=== PATIENT | female | born 1955 | race Caucasian/White ===

== ENCOUNTER → 2017-11-18 11:26 | Outpatient (CLI) | payer OTHER, SELFPAY ==
[2017-11-18 14:27] LABS: Alanine Aminotransferase 18 U/L (12-78); Albumin Level 3.7 gm/dL (3.4-5.0); Albumin/Globulin Ratio 1.3 (1.1-1.8); Alkaline Phosphatase 58 U/L (46-116); Anion Gap 11.8 mEq/L (5-15); Aspartate Amino Transferase 10 U/L (15-37); Bilirubin,Total 0.2 mg/dL (0.2-1.0); Blood Urea Nitrogen 3 mg/dL (7-18); Calcium 8.4 mg/dL (8.5-10.1); Carbon Dioxide 28 mmol/L (21.0-32.0); Chloride 103 mmol/L (98-107); Creatinine,Serum 0.79 mg/dL (0.55-1.02); Estimated Glomerular Filt Rate 74 ml/min (>60); GFR (African American) 90 ML/MIN (>60); Globulin 2.8 gm/dl (1.3-3.2); Glucose 106 mg/dL (74-106); Potassium 3.8 mmoL/L (3.5-5.1); Sodium 139 mmol/L (136-145); Thyroid Stimulating Hormone 1.03 uIU/ml (0.358-3.740); Total Protein,Serum 6.5 gm/dL (6.4-8.2)
[2017-11-21 05:25] LABS: Vitamin B12 >2000 pg/mL (232-1245)
== END ==
PROVIDERS: PCP Family Medicine; Visit Provider Family Medicine
DX: D12.6 Benign neoplasm of colon, unspecified (principal); F41.8 Other specified anxiety disorders
CPT/HCPCS: 36415; 80053; 82607; 84443

== ENCOUNTER → 2018-01-06 14:47 | Outpatient (CLI) | payer OTHER, SELFPAY ==
--- NOTE | 2018-01-06 14:54 | MM_ITS ---
MM Dig mamm BI DX w/CAD COMPARISON: Digital mammograms with CAD 07/25/2014 INDICATION: There is no personal or family history of breast cancer. There is been previous biopsy right breast for benign disease. There is apparent new palpable lesion left breast. TECHNIQUE: Standard MLO and CC views were obtained along with spot compression MLO and CC views and magnification views upper outer quadrant left breast FINDINGS: Prominent somewhat heterogenic fibroglandular densities are seen in the central portions of both breast. A marker was placed on the skin upper outer quadrant left breast at the site of the palpable lump. There is asymmetrical increased density at this site and spot magnification exaggerated cc view shows what appears be a a spherical somewhat homogeneous appearing mass. Ultrasound performed the same date showed a hypoechoic mass corresponding in size and location to this density with internal debris. In view of the size of the lesion and the fact that it was not present on the previous mammogram cyst aspiration for cytology should be considered. There are few scattered benign-appearing calcination right breast and there is minimal arterial calcification left breast. There are multiple scattered microcalcifications upper outer quadrant left breast as well which appear to be typical of sclerosing adenosis. IMPRESSION: Moderately dense parenchymal pattern with asymmetric density left breast with ultrasound correlation and recommend follow-up cyst aspiration for both symptomatic relief and cytology BI-RADS Category: 4 Suspicious Abnormality-Biopsy Considered RECOMMENDED FOLLOW-UP: IMM - IMMEDIATE FOLLOW-UP RECOMMENDED (A letter has been sent to the patient regarding results of the study.)
--- NOTE | 2018-01-06 16:10 | US_ITS ---
US breast LT complete COMPARISON: None HISTORY: New palpable lump left breast with asymmetric density on mammogram performed same date TECHNIQUE: Targeted ultrasound left breast FINDINGS: There is an oval hypoechoic cystic-appearing lesion at the 1:00 position mid breast measuring 2.6 x 2.1 x 1.4 cm. There is moderate internal debris noted. The borders are fairly well demarcated and smooth. In addition there is a tiny hypoechoic lesion at the 9:00 position near the nipple to small to definitely characterize but probably a microcyst measuring point to 5.3 cm. IMPRESSION: Dominant hypoechoic cystic lesion 1:00 position mid breast corresponding in size and location to the asymmetric density on the mammogram same date in view of the patient's age and size of the lesion recommend follow-up cyst aspiration for cytology
== END ==
PROVIDERS: PCP Family Medicine; Visit Provider Family Medicine
DX: N63.0 Unspecified lump in unspecified breast (principal)
CPT/HCPCS: 76641; 77066

== ENCOUNTER → 2018-01-31 09:01 | Outpatient (CLI) | payer OTHER, SELFPAY ==
--- NOTE | 2018-01-31 09:03 | US_ITS ---
US breast cyst asp, MM Dig mamm DX unilat LT CAD, US breast LT complete HISTORY: ITS.REASON: cyst of lt breast ORDERING PHYSICIAN: Markell Stallworth MD PATIENT AGE: 62 years COMPARISON: 01/06/2018 Prebiopsy ultrasound: Prebiopsy examination once again demonstrates a 2 cm cyst in the 1:00 region left breast with some low-level internal echoes. Biopsy planning performed and appropriate skin site marked. TECHNIQUE: Following obtaining informed consent, using aseptic technique and local anesthesia with buffered lidocaine, fine-needle aspiration was performed of the nodule of interest using sonographic guidance. 4 mL's of slightly greenish turbid fluid was aspirated from the cyst with a 25-gauge needle. The cyst completely disappeared on ultrasound. Specimen was given to cytology. The patient tolerated the procedure well without evidence of immediate complications and left the ultrasound suite in stable condition. CYTOLOGY:Negative for malignancy. Findings most consistent with cyst Postbiopsy mammogram: Dense fibroglandular tissue. Previously noted asymmetric density in the upper outer aspect of the left breast no longer apparent. IMPRESSION: Successful sonographic guided cyst aspiration of the left breast. Benign cytology. Recommend follow-up left breast ultrasound in 6 months per routine protocol
== END ==
PROVIDERS: PCP Family Medicine; Visit Provider Surgery
DX: N60.02 Solitary cyst of left breast (principal)
CPT/HCPCS: 10022; 76641; 76942; 77065

== ENCOUNTER → 2021-11-19 10:30 | Outpatient (CLI) | payer SELFPAY ==
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
== END ==
PROVIDERS: PCP Family Medicine; Visit Provider Nurse Practitioner Family
DX: R42 Dizziness and giddiness (principal); G51.0 Bell's palsy; H49.20 Sixth [abducent] nerve palsy, unspecified eye; H57.04 Mydriasis; H91.90 Unspecified hearing loss, unspecified ear; H93.19 Tinnitus, unspecified ear; S05.91XA Unspecified injury of right eye and orbit, initial encounter; S13.110A Subluxation of C0/C1 cervical vertebrae, initial encounter; Z86.79 Personal history of other diseases of the circulatory system; Z87.828 Personal history of other (healed) physical injury and trauma
CPT/HCPCS: 70551

== ENCOUNTER → 2023-02-16 08:20 | Outpatient (CLI) | payer MEDICARE, SELFPAY ==
--- NOTE | 2023-02-16 08:28 | MM_ITS ---
PROCEDURE INFORMATION: Exam: MG Bilateral Screening 3D Mammography Exam date and time: 02/16/2023 8:22 AM Age: 67 years old Clinical indication: Screening examination TECHNIQUE: Imaging protocol: Bilateral Screening tomosynthesis and 2D mammography including computer-aided detection (CAD) when performed. COMPARISON: 1. MG DXLT MM Dig mamm DX unilat LT CAD 01/31/2018 11:27 AM 2. MG DXBI MM Dig mamm BI DX w/CAD 01/06/2018 3:22 PM FINDINGS: MAMMOGRAPHY: Breast composition: The breasts are extremely dense, which lowers the sensitivity of mammography. Mass: None. Architectural distortion: None. Calcifications: No suspicious calcifications. Asymmetric density: None. Skin thickening: None. Axillary adenopathy: None. IMPRESSION: No mammographic evidence of malignancy. Annual screening is recommended unless otherwise clinically indicated. ASSESSMENT: BI-RADS Category 1: Negative
== END ==
PROVIDERS: PCP Family Medicine; Visit Provider Family Medicine
DX: Z12.31 Encounter for screening mammogram for malignant neoplasm of breast (principal)
CPT/HCPCS: 77063; 77067

== ENCOUNTER → 2023-03-04 09:19 | Outpatient (CLI) | payer MEDICARE, SELFPAY ==
--- NOTE | 2023-03-04 09:25 | XR_ITS ---
FINAL REPORT CLINICAL HISTORY: Osteoporosis screening COMPARISON: None FINDINGS: Using L1-4, the bone mineral density of the spine is 0.830 g/cm2, corresponding to T-score of -2.0, consistent with osteopenia. Using the left hip, the bone mineral density of the femoral neck is 0.596 g/cm2, corresponding to a T-score of -2.8, consistent with osteoporosis. Using the right hip, the bone mineral density of the femoral neck is 0.593 g/cm2, corresponding to a T-score of -2.9, consistent with osteoporosis. FRAX not reported because some T-score at or below -2.5. NOTE: T-score: Standard deviation compared with peak bone mass of young adult mean. *Following the recommendations of the International Society of Bone densitometry, classification of hip BMD is based on the lower of two T-scores; total hip or femoral neck. IMPRESSION: Diminished bone mineral density consistent with osteoporosis. Reviewed, Interpreted and Dictated by Dante Morrison MD Transcribed by Kimberley Cornejo Authenticated and [facility]
== END ==
LOC: RAD 09:19
PROVIDERS: PCP Family Medicine; Visit Provider Family Medicine
DX: M85.89 Other specified disorders of bone density and structure, multiple sites (principal); Z13.820 Encounter for screening for osteoporosis
CPT/HCPCS: 77080

== ENCOUNTER 2024-01-23 17:13 | Outpatient (CLI) | payer MEDICARE, SELFPAY ==
--- NOTE | 2024-01-23 17:34 | XR_ITS ---
PROCEDURE INFORMATION: Exam: XR Right Wrist Exam date and time: 01/23/2024 5:25 PM Age: 68 years old Clinical indication: Pain; Wrist; Right; Additional info: Injury TECHNIQUE: Imaging protocol: Radiologic exam of the right wrist. Views: 3 or more views. COMPARISON: No relevant prior studies available. FINDINGS: Bones/joints: Acute impacted fracture through the epiphyseal area of the distal radius. There is approximately 15 degrees of dorsal inclination. Minimal comminution. The degree of impaction measures approximately 4 mm. Acute fracture through the ulnar styloid tip. There is approximately 2 mm of fracture distraction. Soft tissues: Associated soft tissue swelling is identified. IMPRESSION: 1. Acute impacted fracture through the epiphyseal area of the distal radius. There is approximately 15 degrees of dorsal inclination. Minimal comminution. The degree of impaction measures approximately 4 mm. 2. Acute fracture through the ulnar styloid tip. There is approximately 2 mm of fracture distraction.
== END 2024-01-23 23:59 | disposition home or self-care (01) ==
LOC: RAD 17:17
PROVIDERS: PCP Family Medicine; Visit Provider Family Medicine
DX: M25.531 Pain in right wrist (principal); S69.91XA Unspecified injury of right wrist, hand and finger(s), initial encounter
CPT/HCPCS: 73110

== ENCOUNTER 2024-10-02 08:24 | Outpatient (CLI) | payer MEDICARE, SELFPAY ==
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
--- OUTSIDE RECORDS SUMMARY | 2024-09-10 09:45 | XMS_ITS ---
Author Organization [facility] Address [address] [place] [id number] Care Team Providers Care Data Entry Email Processor Name Role Phone Ale Sheridan Primary Care Provider [phone] Apurva Real Unavailable [phone] Allergies Allergen (clinical drug ingredient) Drug/Non Drug Allergy documented on EMR Reaction Allergy Type Onset Date Status hydrochlorothiazide hydroCHLOROthiazide Unknown Drug Aller gy Active REASON FOR VISIT hearing aid Medications Medication SIG (Take, Route, Frequency, Duration) Notes Start Date End Date Status Temazepam 30 MG 1 capsule at bedtime as needed Orally at bed time; Duration: 30 days 08/24/2024 Active LORazepam 0.5 MG 1 tab(s) Orally twic e a day as needed 08/24/2024 Active FeroSul 325 (65 Fe) MG 1 tab(s) orally T wo times a day; Duration: 90 days Active Meclizine HCl 25 MG 1 tablet as needed O rally At Bed Time 07/11/2023 Not-Taking Risedronate Sodium 35 MG 1 tablet at least 30 minutes before the first food or drink, other than water, of the day Orally once weekly Active Estrace 0.1 MG/GM 1 g intravaginally 3 times a week 04/19/2017 Active Potassium Chloride ER 10 MEQ 1 tablet with food Orally Twice a day; Duration: 90 days Active Vitamin B-12 1000 MCG TAKE 1 TABLET BY M OUTH DAILY; Duration: 90 Active Pantoprazole Sodium 40 MG 1 tab(s) orally once a day; Duration: 90 days Active Vital Signs Weight 106.8 lbs 09/10/2024 Blood pressure systolic 122 mm Hg 09/11/19 25 Blood pressure diastolic 72 mm Hg 025 Heart Rate 83 /min 09/10/2024 Height 64.50 in 09/10/2024 BMI 18.05 kg/m2 09/10/2024 Encounters Encounter Location Date Provider Diagnosis [facility] [address] [place], [place] [phone] 09/10/2024 Apurva Real Abrasion of ear canal, left, initial encounter S00.412A Assessments Encounter Date Diagnosis (ICD Code) Assessment Notes Treatment Notes Treatment Clinical Notes Section Notes 09/10/2024 Abrasion of ear canal, left, initial encounter (ICD-10 - S00.412A) no Q tips inear canal; gentle placement of hearing aide into canal; hearing aide with small inner ear piece and regular smooth surface Real, Apurva 09/10/2024 02:14:56 PM EDT > Plan Of Treatment Treatment Notes Assessment Notes Abrasion of ear canal, left, initial encounter no Q tips inear canal; gentle placement of hearing aide into canal; hearing aide with small inner ear piece and regular smooth surface Real, Apurva 09/10/2024 02:14:56 PM EDT > Next Appt Details Follow Up: prn, Reason: Provider Name:Ale Wood er, 11/30/2024 09:45:00 AM, [address], [address], [place], [place], [id number], Progress Notes * TWIN FORMANADOB:1955 (69 yo F)Acc No.[id number]:09/10/2024 Progress Notes Patient: DOUGLAS VALDIVIA Provider: SAMEER Montalvo :1955 A ge:68 Y S ex:Female Date:09/10/2024 Address:[facility] [address], [id number] Pcp:Ale Sheridan Subjective: * Chief Complaints: * 1 . Hearing aid. * HPI: H PI: Patient is here today for P t here for hearing concerns. Pt states that she was in the shower and when she got out she put the left hearing aid in and her ears was not dryed out, so they took them out and blood came out, so they just want to get her ears checked out. * ROS: D ERMATOLOGY: no R sheridan. [...] breast 1967, right knee surgery x 3 [phone], left foot second digit surgery 2001, mass [...] 10/17/12. * Family History: F ather: , [place]. M other: , depression. 2 brother(s) - [...] food Orally Twice a day , Taking Vitamin B-12 1000 MCG Tablet TAKE 1 TABLET BY MOUTH DAILY , Taking Pantoprazole Sodium 40 MG Tablet Delayed Release 1 tab(s) orally once a day , Taking Risedronate Sodium 35 MG Tablet 1 tablet at least 30 minutes before the first food or drink, other than water, of the day Orally once weekly , Taking Temazepam 30 MG Capsule 1 capsule at bedtime as needed Orally at bed time , Taking LORazepam 0.5 MG Tablet 1 tab(s) Orally twice a day as needed , Taking FeroSul 325 (65 Fe) MG Tablet 1 tab(s) orally Two times a day , Not-Taking Meclizine HCl 25 MG Tablet 1 tablet as needed Orally At Bed Time , Medication List reviewed and reconciled with the patient * Allergies: h ydroCHLOROthiazide. Objective: * Vitals: W t: 106.8, Temp: 97.7, BP: 122/72, HR: 83, Nurse: pe, Ht: 64.50, BMI:18.05. * Examination: G eneral Examination: General Appearance: N AD, alert, appears healthy. H EENT: s clera and conjunctiva clear, PERRLA, TM's normal, translucent; left ear canal with minute dried blood; no edema /irritation. H eart: R RR. L ungs: C TAB A&P. ? Assessment: * Assessment: 1. A brasion of ear canal, left, initial encounter - S00.412A (Primary) Plan: * Treatment: * Procedure Codes: G 2211 Complex e/m visit add on, 1036F TOBACCO NON-USER, G8783 BP SCR PRFRM RCMDD DEFIND SCR INTVL, G8752 MOST RECENT SYSTOLIC BP < 140MM HG, G8754 MOST RECENT DIASTOLIC BP < 90MM HG * Follow Up: p rn * Images: Billing Information: * Visit Code: 91375 Office Visit, Est Pt., Level 3. * Procedure Codes: G2211 Complex e/m visit add on. 1036F TOBACCO NON-USER. G8783 BP SCR PRFRM RCMDD DEFIND SCR INTVL. G8752 MOST RECENT SYSTOLIC BP < 140MM HG. G8754 MOST RECENT DIASTOLIC BP < 90MM HG. * Electronic signature of Debbi Real APRN on 10/02/2024 at 08:29 AM EDT Sign off status: Pending * Provider: SAMEER Montalvo Date: 09/10/2024 Generated for Myrna bui/Clare/Rachna on: 10/02/2024 08:29 AM EDT History and Physical Notes * HPI (History of Present Illness) Category Sub-Category Detail Notes Category Not es HPI Patient is here today for Pt her e for hearing concerns. Pt states that she was in the shower and when she got out she put the left hearing aid in and her ears was not dryed out, so they took them out and blood came out, so they just want to get her ears checked out Examination Category Sub-Category Detail Notes Category Not es General Examination HEENT: sclera and c onjunctiva clear, PERRLA, TM's normal, translucent; left ear canal with minute dried blood; no edema /irritation Heart: RRR Lungs: CTAB A&P General Appearance: NAD, alert, appears healthy
--- OUTSIDE RECORDS SUMMARY | 2024-09-24 06:00 | XMS_ITS ---
Author Organization [facility] Address [address] [facility] [address] [place] [phone] Care Team Providers Care Adoption Agent Name Role Phone Ale Sheridan Primary Care Provider REASON FOR VISIT due for Mammogram Encounters Encounter Location Date Provider Diagnosis [facility] [address] [facility] [address] [facility] [address] [place] [phone] 09/24/2024 Ale Sheridan Screening for breast cancer Z12.39 Assessments Encounter Date Diagnosis (ICD Code) Assessment Notes Treatment Notes Treatment Clinical Notes Section Notes 09/24/2024 Screening for breast cancer (ICD-10 - Z12.39) Plan Of Treatment Pending Test Test Name Order Date Mammogram 09/24/2024 Next Appt Details Provider Name:Ale Wood er, 11/30/2024 09:45:00 AM, [address] [facility] [address] [facility], [address], [place], [place], [id number], Progress Notes * TWIN MANCINIADOB:1955 (69 yo F)Acc No.[id number]:09/24/2024 Patient: Patel MURCIATERRIDOUGLAS SCHOFIELD :1955 A ge:69 Y S ex:Female Address:[place] [address] Subjective: * Chief Complaints: * d ue for Mammogram * Medical History: * Surgical History: * Hospitalization/Major Diagno stic Procedure: * Medications: Objective: * Vitals: * Physical Examination: Assessment: * Assessment: 1. S creening for breast cancer - Z12.39 (Primary) Plan: * Treatment: * Procedure Codes: * true * Date: Generated for Myrna bui/Clare/Rachna on: 10/02/2024 08:28 AM EDT
--- NOTE | 2024-10-02 08:25 | MM_ITS ---
PROCEDURE INFORMATION: Exam: MG Bilateral Screening 3D Mammography Exam date and time: 10/02/2024 8:30 AM Age: 69 years old Clinical indication: Screening. No family history of breast cancer. TECHNIQUE: Imaging protocol: Bilateral Screening tomosynthesis and 2D mammography including computer-aided detection (CAD) when performed. COMPARISON: 1. MG MM DIG SCREENING MAMM BI W/CAD 02/16/2023 8:22 AM 2. MG DXLT MM Dig mamm DX unilat LT CAD 01/31/2018 11:27 AM 3. MG DXBI MM Dig mamm BI DX w/CAD 01/06/2018 3:22 PM 4. MG DMSB DIG MAMM-SCREEN LIANNA 07/25/2014 10:19 AM FINDINGS: MAMMOGRAPHY: Breast composition: The breasts are extremely dense, which lowers the sensitivity of mammography. Mass: None. Architectural distortion: None. Calcifications: No suspicious calcifications. Asymmetric density: None. Skin thickening: None. Axillary adenopathy: None. IMPRESSION: No mammographic evidence of malignancy. Annual screening is recommended unless otherwise clinically indicated. ASSESSMENT: BI-RADS Category 1: Negative.
--- OUTSIDE RECORDS SUMMARY | 2024-10-02 08:29 | XMS_ITS | Clinical Summary ---
Author Organization [facility] Address [address] [place] [address] Care Team Providers Care Orthotic Technician Name Role Phone Dax Sheridan MD Primary Care Provider [phone] Social History Tobacco Use Types Packs/Day Years Used Date Smoking Tobacco: Never Assessed Comments Unknown Sex and Gender Information Value Date Recorded Sex Assigned at Not on file Legal Sex Female 7:32 PM EDT Gender Identity Not on file Sexual Orientation Not on file Plan of Treatment Health Maintenance Due Date Last Done Comments [facility]-Bone Density Scan 1957 [facility]-Depression Screening 1957 [facility]-Infant/Child/Adol SDOH Screenings 1957 [facility]- SDOH Screenings 09/13/1975 [facility]-Adult SDOH Screenings 09/13/1975 [facility]-DTaP,Tdap,and Td Vaccine s (1 - Tdap) 1976 CT Colonography 2002 Colonoscopy 2002 FIT-DNA 2002 FIT 2002 FOBT 2002 Sigmoidoscopy 2002 [facility]-Colorectal Cancer Screening 2002 [facility]-Pneumococcal Vaccine: 50 + Years (1 of 1 - PCV) 09/13/2007 [facility]-Zoster Vaccines (1 of 2) 09/13/2007 [id number] Vaccine (1 - 20 24-25 season) 2023 [facility]-Influenza Vaccine (#1) 2024 [facility]-RSV Vaccine: 60+ Years o r (1 - 1-dose 75+ series) 2032 HPV Vaccines Aged Out No longer eligi ble based on patient's age to complete this topic [facility]-HIB Vaccines Aged Out No longer e ligible based on patient's age to complete this topic [facility]-Hepatitis A Vaccines Aged Out No longer eligible based on patient's age to complete this topic [facility]-IPV Vaccines Aged Out No longer e ligible based on patient's age to complete this topic [facility]-Rotavirus Vaccines Aged Out No lo nger eligible based on patient's age to complete this topic Care Teams Orthotic Technician Relationship Specialty Start Date End Date Dax Sheridan MD [address] [place] [address] PCP - General 07/18/20
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
--- OUTSIDE RECORDS SUMMARY | 2024-10-02 08:29 | XMS_ITS ---
Author Organization Unknown Medications Date Medication Dosage DosageUnit StartDate StopDate StopReason Active DoseQuantity DoseUnit Dispense DispenseUnit Refills NdcCode DrugCode PharmacyId IsPrescription MappedMedication Srcstatus 01/22 00:00 :00 clonazePAM 0.5 MG Tablet 01/02/2024 00:00:00 0 60 2 [id number] 3 201 P Discontinu ed 01/01 00:00 :00 clonazePAM 0.5 MG Tablet 01/02/2024 00:00:00 1 60 2 [id number] 3 201 P Unknown Status 11/20 00:00 :00 clonazePAM 0.5 MG Tablet 07/11/2023 00:00:00 0 60 2 [id number] 3 201 P Not Taking 05/25 00:00 :00 Estrace 0.1 MG/GM Cream 04/19/2017 00:00:00 1 45 Gram 4 8506951 5 414 P Taking 02/19 00:00 :00 Estrace 0.1 MG/GM Cream 04/19/2017 00:00:00 1 45 Gram 4 [id number] 5 414 P Taking 01/22 00:00 :00 Estrace 0.1 MG/GM Cream 04/19/2017 00:00:00 1 45 Gram 4 [id number] 5 414 P Taking 11/20 00:00 :00 Estrace 0.1 MG/GM Cream 04/19/2017 00:00:00 1 45 Gram 4 [id number] 5 414 P Taking 07/12 00:00 :00 FeroSul 325 (65 Fe) MG Tablet 1 180 Tablet 0 [id number] 060 Start 07/12 00:00 :00 FeroSul 325 (65 Fe) MG Tablet 0 60 Tablet 2 87358851 060 Stop 05/25 00:00 :00 FeroSul 325 (65 Fe) MG Tablet 1 60 Tablet 2 [id number] 060 P Taking 02/19 00:00 :00 FeroSul 325 (65 Fe) MG Tablet 1 60 Tablet 2 [id number] 060 P Taking 02/02 00:00 :00 FeroSul 325 (65 Fe) MG Tablet 1 60 Tablet 2 [id number] 060 P Unknown Status 01/22 00:00 :00 FeroSul 325 (65 Fe) MG Tablet 1 60 Tablet 2 [id number] 060 P Taking 11/20 00:00 :00 FeroSul 325 (65 Fe) MG Tablet 1 60 Tablet 2 17186038 060 P Taking 07/26 00:00 :00 LORazepam 0.5 MG Tablet 07/27/2024 00:00:00 1 60 0 [id number] 2 501 P Unknown Status 05/25 00:00 :00 LORazepam 0.5 MG Tablet 04/26/2024 00:00:00 1 60 2 [id number] 2 501 P Taking 04/23 00:00 :00 LORazepam 0.5 MG Tablet 04/26/2024 00:00:00 1 60 2 [id number] 2 501 P Unknown Status 02/19 00:00 :00 LORazepam 0.5 MG Tablet 01/27/2024 00:00:00 1 60 2 [id number] 2 501 P Taking 01/24 00:00 :00 LORazepam 0.5 MG Tablet 01/27/2024 00:00:00 1 60 2 [id number] 2 501 P Unknown Status 01/22 00:00 :00 LORazepam 0.5 MG Tablet 10/05/2023 00:00:00 1 60 2 [id number] 2 501 P Taking 11/20 00:00 :00 LORazepam 0.5 MG Tablet 10/05/2023 00:00:00 1 60 2 [id number] 2 501 P Taking 10/03 00:00 :00 LORazepam 0.5 MG Tablet 10/05/2023 00:00:00 1 60 2 [id number] 2 501 P Unknown Status 05/25 00:00 :00 Meclizine HCl 25 MG Tablet 07/11/2023 00:00:00 0 30 3 [id number] 7 661 P Not Taking 02/19 00:00 :00 Meclizine HCl 25 MG Tablet 07/11/2023 00:00:00 0 30 3 [id number] 7 661 P Not Taking 01/22 00:00 :00 Meclizine HCl 25 MG Tablet 07/11/2023 00:00:00 0 30 3 [id number] 7 661 P Not Taking 11/20 00:00 :00 Meclizine HCl 25 MG Tablet 07/11/2023 00:00:00 0 30 3 [id number] 7 661 P Not Taking 07/24 00:00 :00 Pantoprazol e Sodium 40 MG Tablet Delayed Release 1 90 1 [id number] 910 P Unknown Status 05/25 00:00 :00 Pantoprazol e Sodium 40 MG Tablet Delayed Release 1 90 1 34176981 910 P Taking 02/19 00:00 :00 Pantoprazol e Sodium 40 MG Tablet Delayed Release 1 90 1 40673050 910 P Taking 01/24 00:00 :00 Pantoprazol e Sodium 40 MG Tablet Delayed Release 1 90 1 78596127 910 P Unknown Status 01/22 00:00 :00 Pantoprazol e Sodium 40 MG Tablet Delayed Release 1 90 Tablet 1 [id number] 68 910 Taking 11/20 00:00 :00 Pantoprazol e Sodium 40 MG Tablet Delayed Release 1 90 Tablet 1 [id number] 68 910 Taking 05/25 00:00 :00 Potassium Chloride ER 10 MEQ Tablet Extended Release 1 180 Tablet 1 [id number] 103 P Taking 02/19 00:00 :00 Potassium Chloride ER 10 MEQ Tablet Extended Release 1 180 Tablet 1 [id number] 103 P Taking 01/24 00:00 :00 Potassium Chloride ER 10 MEQ Tablet Extended Release 1 180 Tablet 1 [id number] 103 P Unknown Status 01/22 00:00 :00 Potassium Chloride ER 10 MEQ Tablet Extended Release 1 60 Tablet 2 [id number] 23 103 Taking 11/29 00:00 :00 Potassium Chloride ER 10 MEQ Tablet Extended Release 1 60 Tablet 2 [id number] 23 103 Start 11/29 00:00 :00 Potassium Chloride ER 10 MEQ Tablet Extended Release 0 60 Tablet 0 [id number] 23 103 Stop 11/24 00:00 :00 Potassium Chloride ER 10 MEQ Tablet Extended Release 1 60 Tablet 0 854826 23 103 Start 11/24 00:00 :00 Potassium Chloride ER 10 MEQ Tablet Extended Release 0 60 2 [id number] 101 Stop 11/20 00:00 :00 Potassium Chloride ER 10 MEQ Tablet Extended Release 1 60 2 [id number] 101 P Taking 05/25 00:00 :00 Risedronate Sodium 35 MG Tablet 1 4 5 [id number] 09 819 Taking 03/05 00:00 :00 Risedronate Sodium 35 MG Tablet 1 4 5 [id number] 09 819 Start 03/05 00:00 :00 Risedronate Sodium 35 MG Tablet 0 4 5 [id number] 09 819 Stop 02/19 00:00 :00 Risedronate Sodium 35 MG Tablet 1 4 5 [id number] 09 819 P Unknown Status 02/19 00:00 :00 Risedronate Sodium 35 MG Tablet 1 4 5 [id number] 09 819 Taking 01/22 00:00 :00 Risedronate Sodium 35 MG Tablet 1 4 5 [id number] 09 819 Taking 11/20 00:00 :00 Risedronate Sodium 35 MG Tablet 1 4 5 [id number] 09 819 Taking 07/26 00:00 :00 Temazepam 30 MG Capsule 07/27/2024 00:00:00 1 30 0 [id number] 7 710 P Unknown Status 06/29 00:00 :00 Temazepam 30 MG Capsule 06/29/2024 00:00:00 1 30 0 [id number] 7 710 P Unknown Status 05/25 00:00 :00 Temazepam 30 MG Capsule 03/30/2024 00:00:00 1 30 2 [id number] 7 710 P Taking 03/30 00:00 :00 Temazepam 30 MG Capsule 03/30/2024 00:00:00 1 30 2 [id number] 7 710 P Continue 03/30 00:00 :00 Temazepam 30 MG Capsule 01/05/2024 00:00:00 1 30 2 [id number] 7 710 P Continue 02/19 00:00 :00 Temazepam 30 MG Capsule 01/05/2024 00:00:00 1 30 2 [id number] 7 710 P Taking 01/22 00:00 :00 Temazepam 30 MG Capsule 01/05/2024 00:00:00 1 30 2 [id number] 7 710 P Taking 01/02 00:00 :00 Temazepam 30 MG Capsule 01/05/2024 00:00:00 1 30 2 [id number] 7 710 P Unknown Status 11/20 00:00 :00 Temazepam 30 MG Capsule 10/05/2023 00:00:00 1 30 2 [id number] 7 710 P Taking 10/03 00:00 :00 Temazepam 30 MG Capsule 10/05/2023 00:00:00 1 30 2 [id number] 7 710 P Unknown Status 07/12 00:00 :00 Vitamin B-12 1000 MCG Tablet 1 90 Tablet 0 61635750 601 Start 07/12 00:00 :00 Vitamin B-12 1000 MCG Tablet 0 90 Tablet 1 [id number] 043 Stop 05/25 00:00 :00 Vitamin B-12 1000 MCG Tablet 1 90 Tablet 1 [id number] 043 P Taking 02/19 00:00 :00 Vitamin B-12 1000 MCG Tablet 1 90 Tablet 1 [id number] 043 P Taking 01/24 00:00 :00 Vitamin B-12 1000 MCG Tablet 1 90 Tablet 1 00434352 043 P Unknown Status 01/22 00:00 :00 Vitamin B-12 1000 MCG Tablet 1 30 2 [id number] 043 Taking 11/20 00:00 :00 Vitamin B-12 1000 MCG Tablet 1 30 2 [id number] 043 Taking 10/04 00:00 :00 Vitamin B-12 1000 MCG Tablet 1 30 2 [id number] 043 Start 10/04 00:00 :00 Vitamin B-12 1000 MCG Tablet 0 30 2 [id number] 043 Stop
== END 2024-10-02 23:59 | disposition home or self-care (01) ==
LOC: RAD 08:24
PROVIDERS: PCP Family Medicine; Visit Provider Family Medicine
DX: Z12.31 Encounter for screening mammogram for malignant neoplasm of breast (principal); R92.343 Mammographic extreme density, bilateral breasts
CPT/HCPCS: 77063; 77067